=== PATIENT | male | born 1995 | race Caucasian/White ===

== ENCOUNTER 2018-11-08 03:13 | Emergency (ER) | payer SELFPAY ==
[~2018-11-08 03:13] MED LIST: DIPHENHYDRAMINE 50 MG INJ; HALOPERIDOL 5 MG INJ
[2018-11-08] MEDS ORDERED: LORAZEPAM 2 MG INJ (03:14)
[2018-11-08] MEDS ORDERED: HALOPERIDOL 5 MG INJ (03:23)
[2018-11-08] MEDS: LORAZEPAM 2 MG INJ IM (03:24)
[2018-11-08] MEDS: HALOPERIDOL 5 MG INJ IM (03:29)
[2018-11-08] MEDS: DIPHENHYDRAMINE 50 MG INJ IM (03:30)
[2018-11-08 04:08] LABS: WHITE BLOOD COUNT 11.3 10^3/ul (4.8-10.8)
[2018-11-08 04:08] LABS: ADD MAN DIFF? NO; BASOPHILS % 0.4 % (0.0-2.0); HEMATOCRIT 43.6 % (42.0-52.0); HEMOGLOBIN 15.1 g/dl (14.0-18.0); LYMPHOCYTES # 1.1 10^3/ul (0.8-2.9); LYMPHOCYTES % 9.5 % (15.0-51.0); MEAN CORPUSCULAR HGB CONC 34.6 g/dl (32.0-37.0); MEAN CORPUSCULAR VOLUME 83.7 fl (82.0-101.0); MEAN PLATELET VOLUME 9.7 fl (7.4-10.4); MONOCYTE # 0.4 10^3/ul (0.3-0.9); MONOCYTES % 3.6 % (0.0-11.0); NEUTROPHIL # 9.8 10^3/ul (1.6-7.5); NEUTROPHILS % 86.1 % (39.0-77.0); PLATELET COUNT 290 10^3/UL (140-415); RED BLOOD COUNT 5.21 10^6/ul (4.70-6.10); RED CELL DISTRIBUTION WIDTH 11.9 % (11.5-14.5)
[2018-11-08 04:27] LABS: ALANINE AMINOTRANSFERASE 27 IU/L (13-69); ALBUMIN 4.6 g/dl (3.3-4.9); ALBUMIN/GLOBULIN RATIO 1.35; ALKALINE PHOSPHATASE 63 IU/L (42-121); ANION GAP 14 (5-13); ASPARTATE AMINO TRANSFERASE 27 IU/L (15-46); BILIRUBIN,INDIRECT 0.6 mg/dl (0-1.1); BILIRUBIN,TOTAL 0.6 mg/dl (0.2-1.3); BLOOD UREA NITROGEN 15 mg/dl (7-20); CALCIUM 9.2 mg/dl (8.4-10.2); CARBON DIOXIDE 22 mmol/L (21-31); CHLORIDE 107 mmol/L (97-110); CREATININE 1.05 mg/dl (0.61-1.24); Estimated GFR > 60 mL/min (>60); GLUCOSE 157 mg/dl (70-220); POTASSIUM 3.5 mmol/L (3.5-5.1); SODIUM 143 mmol/L (135-144)
[2018-11-08 04:59] LABS: ACETAMINOPHEN < 10.0 ug/ml (10.0-30.0); ETHANOL < 10.0 mg/dl (0-0); SALICYLATE < 1.0 mg/dl (5.0-30.0)
== END 2018-11-08 07:45 | disposition home or self-care (01) ==
LOC: E/R 03:13
DX: R45.1 Restlessness and agitation (principal)
CPT/HCPCS: 36415; 80053; 80307; 85025; 96372; 99284-25